=== PATIENT | male | born 1950 | race Caucasian/White ===

== ENCOUNTER 2022-12-14 10:25 | Outpatient (OUT) | payer MEDICARE, SELFPAY ==
[2022-12-14 11:39] LABS: Basophils Percent Auto 0.3 % (0.2-2.0); Eosinophils Absolute Auto 0.2 10^3/uL (0.0-0.7); Hematocrit 41.9 % (42.0-54.0); Hemoglobin 14.5 g/dL (14.0-18.0); Immature Granulocytes Abs Auto 0.02 10^3/uL (0.00-0.03); Immature Granulocytes Pct Auto 0.2 % (0.0-0.5); Lymphocytes Absolute Auto 1.5 10^3/uL (1.2-3.8); Lymphocytes Percent Auto 16.3 % (20.5-60.0); Mean Corpuscular HGB Conc 34.6 g/dL (29.9-35.2); Mean Corpuscular Hemoglobin 29.4 pg (25.9-34.0); Mean Platelet Volume 10.9 fL (9.5-13.5); Monocytes Absolute Auto 0.9 10^3/uL (0.3-0.8); Monocytes Percent Auto 9.3 % (1.7-12.0); Neutrophils Absolute Auto 6.7 10^3/uL (1.4-6.5); Neutrophils Percent Auto 71.9 % (43.0-75.0); Platelet Count 389 10^3/uL (150-450); Red Blood Count 4.93 10^6/uL (4.70-6.10); Red Cell Distribution Width 14.6 % (11.0-15.0); White Blood Count 9.4 10^3/uL (4.0-11.0)
[2022-12-14 11:54] LABS: Alanine Aminotransferase 21 U/L (16-63); Albumin Globulin Ratio 0.9; Albumin Level 3.5 g/dL (3.4-5.0); Alkaline Phosphatase 77 U/L (46-116); Anion Gap 11.3; Aspartate Amino Transferase 14 U/L (15-37); Bilirubin Total 0.5 mg/dL (0.2-1.0); Calcium 9.1 mg/dL (8.5-10.1); Carbon Dioxide 26.6 mmol/L (21.0-32.0); Chloride 104 mmol/L (98-107); Chol HDL Ratio 3.1; Cholesterol 175 mg/dL (<=200); Estimated GFR (African America >60 (>=60); Estimated GFR (Non-African Ame >60 (>=60); Globulin 4.1 g/dL; Glucose 146 mg/dL (74-106); HDL Cholesterol 57 mg/dL (40-60); Potassium 3.9 mmol/L (3.5-5.1); Sodium 138 mmol/L (136-145); Total Protein 7.6 g/dL (6.4-8.2); Triglycerides 70 mg/dL (<=150)
[2022-12-14 12:14] LABS: Prostate Specific Antigen Scrn 1.61 ng/mL (<=4.00)
[2022-12-14 12:17] LABS: Estimated Average Glucose 120 mg/dL; Glycohemoglobin A1C 5.8 % (4.5-6.2)
== END 2022-12-14 10:26 | disposition home or self-care (01) ==
PROVIDERS: PCP Family Medicine; Visit Provider Family Medicine
DX: I10 Essential (primary) hypertension (principal); E11.65 Type 2 diabetes mellitus with hyperglycemia; Z12.5 Encounter for screening for malignant neoplasm of prostate
CPT/HCPCS: 36415; 80053; 80061; 83036; 85025; G0103

== ENCOUNTER 2023-10-25 09:53 | Outpatient (OUT) | payer MEDICARE, SELFPAY ==
[2023-10-25 11:15] LABS: Estimated Average Glucose 131 mg/dL; Glycohemoglobin A1C 6.2 % (4.5-6.2)
[2023-10-25 11:21] LABS: Alanine Aminotransferase 31 U/L (16-63); Albumin Globulin Ratio 0.9; Albumin Level 3.4 g/dL (3.4-5.0); Alkaline Phosphatase 90 U/L (46-116); Anion Gap 12.3; Aspartate Amino Transferase 15 U/L (15-37); BUN Creatinine Ratio 15.6; Bilirubin Total 0.5 mg/dL (0.2-1.0); Calcium 8.7 mg/dL (8.5-10.1); Carbon Dioxide 27.5 mmol/L (21.0-32.0); Chloride 99 mmol/L (98-107); Estimated GFR (African America >60 (>=60); Estimated GFR (Non-African Ame >60 (>=60); Globulin 3.9 g/dL; Glucose 174 mg/dL (74-106); Potassium 3.8 mmol/L (3.5-5.1); Sodium 135 mmol/L (136-145); Total Protein 7.3 g/dL (6.4-8.2)
== END 2023-10-25 09:54 | disposition home or self-care (01) ==
LOC: LAB 09:56
PROVIDERS: PCP Family Medicine; Visit Provider Family Medicine
DX: E11.65 Type 2 diabetes mellitus with hyperglycemia (principal); I10 Essential (primary) hypertension
CPT/HCPCS: 36415; 80053; 83036

== ENCOUNTER 2024-05-16 10:39 | Outpatient (OUT) | payer MEDICARE, SELFPAY ==
--- OUTSIDE RECORDS SUMMARY | 2024-05-16 10:52 | XMS_ITS | CCD ---
Author Organization [facility] Care Team Providers Care Sap Director Name Role Phone DR RANDA HYLTON Attending Unavailable DR RANDA HYLTON Consulting Unavailable DR RANDA HYLTON Primary Care Unavailable DR RANDA HYLTON Admitting Unavailable Randa Hylton Allergies Allergy Classification Reported Allergen(s) Allergy Type Date of Onset Reaction(s) Facility (2 sources) Aspirin / Caffeine / Orphenadrine Drug Allergy 04-17-20 13 Comment:Freete xt Needs Updated. [facility] Other (2 sources) patient allergy list reviewed by nurse or physicia Propensity to adverse reactions 04-17-20 13 Comment:Done [facility] Other (2 sources) Allergies Reconciled Propensity to adverse reactions Unknown [facility] Other Medications Current Medications Medication Drug Class(es) Dates Sig (Normalized) Sig (Original) atorvastatin 20 mg oral tablet (10 sources) HMG-CoA Reductase Inhibitor Start: 09-30-2023 take 1 tablet by mouth once daily Atorvastatin Active 0 .ROUTE .COMPLEX September 30, 2023 4:37pm Take 1 tablet by mouth once daily Start: 08-31-2023 End: 09-30-2023 take 1 tablet by mouth once daily Atorvastatin Discontinued 0 .ROUTE .COMPLEX August 31, 2023 12:16pm September 30, 2023 4:37pm Take 1 tablet by mouth once daily Start: 08-04-2023 End: 08-31-2023 take 1 tablet by mouth once daily Atorvastatin Discontinued 0 .ROUTE .COMPLEX August 04, 2023 9:28am August 31, 2023 12:16pm Take 1 tablet by mouth once daily for 30 days Start: 07-27-2023 End: 08-04-2023 take 1 tablet by mouth once daily Atorvastatin Discontinued 1 TAB PO Daily July 27, 2023 12:00am August 04, 2023 9:28am [employer] tablet Orally Once a day; Note: Source Status: Start; Refills: 2; Provider: Warner Moser take 1 tablet by dandre th every twenty-four hours Atorvastatin Calcium 20 MG 1 tablet Orally Once a day for 30 days Active hydroCHLOROthiazide 25 mg / lisinopril 20 mg oral tablet (5 sources) Thiazide Diuretic, Angiotensin Converting Enzyme Inhibitor Start: 07-26-2023 take 1 tablet by mouth once daily Lisinopril-Hydrochlorothiazide Active 1 TAB PO Daily July 26, 2023 12:00am take 1 tablet by dandre th once daily Lisinopril-hydroCHLOROthiazide 20-25 MG Take 1 tablet by mouth once daily Active metFORMIN (7 sources) Biguanide Start: 11-25-2023 take 1 tablet by mouth twice daily Metformin Active 0 .ROUTE .COMPLEX 60 November 25, 2023 11:33am Take 1 tablet by mouth twice daily Start: 10-27-2023 End: 11-25-2023 take 1 tablet by mouth twice daily Metformin Discontinued 0 .ROUTE .COMPLEX 60 October 27, 2023 10:42am November 25, 2023 11:33am Take 1 tablet by mouth twice daily Start: 06-23-2023 End: 10-27-2023 take 500 mg by mouth twice daily Metformin Discontinued 500 MG PO Twice daily 60 June 23, 2023 1:00am October 27, 2023 10:42am take 1 tablet by dandre th twice daily metFORMIN HCl 500 MG Take 1 tablet by mouth twice daily for 30 Active 24 hr metoprolol succinate 100 mg extended release oral tablet (18 sources) beta-Adrenergic Sundeep Start: 01-17-2024 take 1 tablet by mouth once daily Metoprolol Succinate Active 0 .ROUTE .COMPLEX January 17, 2024 1:15pm Take 1 tablet by mouth once daily Start: 08-03-2023 End: 01-17-2024 take 100 mg by mouth once daily Metoprolol Succinate Discontinued 100 MG PO Daily October 19, 2023 8:34am January 17, 2024 1:15pm Start: 07-27-2023 End: 08-03-2023 take 100 mg by mouth twice daily Metoprolol Succinate Discontinued 100 MG PO Twice daily July 27, 2023 9:38am August 03, 2023 8:47pm Start: 07-22-2023 End: 07-27-2023 take 1 tablet by mouth once daily Metoprolol Succinate Discontinued 0 .ROUTE .COMPLEX 90 July 22, 2023 2:34pm July 27, 2023 9:38am Take 1 tablet by mouth once daily Start: 07-22-2023 End: 07-22-2023 take 100 mg by mouth once daily Metoprolol Succinate Discontinued 100 MG PO Daily July 22, 2023 12:00am July 22, 2023 2:34pm Start: 11-18-2021 take 1 tablet by dandre th once daily Toprol XL 50MG Toprol XL 50MG, 1 (one) Tablet daily # 90, 11/18/2021, Ref. x3. Active Oral daily for 90 *Pick strength-form from [employer] for eRX* Oct, Active take 1 tablet by dandre th once daily Metoprolol Succinate ER 100 MG Take 1 tablet by mouth once daily Active sildenafil 25 mg oral tablet (10 sources) Phosphodiesterase 5 Inhibitor Start: 11-11-2023 End: 12-30-2023 Sildenafil Active 0 .ROUTE .COMPLEX December 30, 2023 8:14am TAKE 1 TABLET BY MOUTH NEEDED FOR SEXUAL ACTIVITY. ADMINISTER 30 MINUTES TO 4 HOURS BEFORE ACTIVITY. Start: 07-27-2023 End: 11-11-2023 Sildenafil Discontinued 25 M G PO Daily July 27, 2023 12:00am November 11, 2023 9:37am administer 30 minutes to 4 hours before activity Start: 07-26-2023 End: 07-27-2023 Sildenafil Discontinued 100 MG PO July 26, 2023 12:00am July 27, 2023 9:53am Sildenafil Citra te 100 MG TAKE 1 TABLET BY MOUTH NEEDED FOR 10 DAYS for 10 Active Timolol (5 sources) beta-Adrenergic Sundeep Start: 07-27-2023 take 1 drop(s) into the eye(s) once daily Timolol Active 1 DROPS EYE-BOTH Daily July 27, 2023 12:00am Start: 11-13-2021 Timolol Maleat e 0.5% Timolol Maleate( 0.5% Ophthalmic ) Active -Hx Entry Ophthalmic for 0 *Pick strength-form from [employer] for eRX* Oct, Active Completed/Discontinued Medications Medication Drug Class(es) Dates Sig (Normalized) Sig (Original) amLODIPine 5 mg oral tablet (10 sources) Dihydropyridine Calcium Channel Sundeep Start: 08-04-2023 End: 09-30-2023 take 1 tablet by mouth once daily Amlodipine Discontinued 0 .ROUTE .COMPLEX August 31, 2023 12:16pm September 30, 2023 4:37pm Take 1 tablet by mouth once daily Start: 07-27-2023 End: 08-04-2023 take 1 tablet by mouth once daily Amlodipine Discontinued 1 TAB PO Daily July 27, 2023 12:00am August 04, 2023 9:28am [employer] tablet Orally Once a day; Note: Source Status: Start; Refills: 2; Provider: Warner Moser take 1 tablet by dandre th every twenty-four hours amLODIPine Besylate 5 MG 1 tablet Orally Once a day for 30 days Active Problems Active Problems Problem Classification Problem Date Documented Da te Episodic/Chronic Diabetes mellitus with complications (8 sources) Type 2 diabetes mellitus; Translations: [Type 2 diabetes mellitus with hyperglycemia] Chronic Diabetes mellitus without complication (6 sources) Impaired fasting glucose; Translations: [Impaired fasting glycemia] Onset: 11-14-2021 07-26-2023 Episodic Essential hypertension (12 sources) Essential (primary) hypertension; Translations: [Essential hypertension] Onset: 11-13-2021 Chronic Miscellaneous mental health disorders (2 sources) Psychosexual dysfunction associated with inhibited sexual excitement; Translations: [Psychosexual dysfunction with inhibited sexual excitement] Onset: 04-06-2016 Chronic Other and ill-defined heart disease (5 sources) Cardiomegaly; Translations: [Cardiomegaly] 07-26-2023 Chronic Other circulatory disease (5 sources) Elevated blood-pressure reading without diagnosis of hypertension; Translations: [Elevated blood-pressure reading, without diagnosis of hypertension] 07-26-2023 Episodic Other connective tissue disease (2 sources) Other specified disorders of synovium and tendon, unspecified site; Translations: [Other specified disorders of synovium and tendon, unspecified site] Episodic Other male genital disorders (7 sources) Male erectile dysfunction, unspecified; Translations: [Erectile dysfunction (disorder)] 07-27-2023 Chronic Other nervous system disorders (2 sources) Carpal tunnel syndrome; Translations: [Carpal tunnel syndrome, right upper limb] Chronic Other nervous system disorders (1 source) Lesion of ulnar nerve; Translations: [Lesion of ulnar nerve, right upper limb] Chronic Other nervous system disorders (1 source) Lesion of ulnar nerve, right upper limb Chronic Other nervous system disorders (3 sources) Carpal tunnel syndrome of right wrist; Translations: [Carpal tunnel syndrome, right upper limb] 07-26-2023 Chronic Other nervous system disorders (3 sources) Ulnar neuropathy; Translations: [Lesion of ulnar nerve, right upper limb] 07-26-2023 Chronic Other nutritional; endocrine; and metabolic disorders (6 sources) Obese class II; Translations: [Body mass index (BMI) 37.0-37.9, adult] Onset: 07-20-2017 Chronic Other nutritional; endocrine; and metabolic disorders (4 sources) Body mass index 30+ - obesity; Translations: [Body mass index 36.0-36.9, adult] Onset: 04-12-2017 07-27-2023 Chronic Other nutritional; endocrine; and metabolic disorders (5 sources) Obesity; Translations: [Other obesity] 07-26-2023 Chronic Other nutritional; endocrine; and metabolic disorders (2 sources) Obesity, unspecified; Translations: [Obesity, unspecified] 07-27-2023 Chronic Other screening for suspected conditions (not mental disorders or infectious disease) (1 source) Encounter for screening for malignant neoplasm of prostate; Translations: [ENC SCREEN MALIG NEOPLASM PROSTATE] Onset: 11-14-2021 Episodic Other skin disorders (2 sources) Other seborrheic keratosis; Translations: [Seborrheic keratosis] Episodic Other skin disorders (3 sources) Seborrheic keratosis; Translations: [Other seborrheic keratosis] 07-26-2023 Episodic Residual codes; unclassified (2 sources) Family history of diabetes mellitus; Translations: [Family history of diabetes mellitus] Episodic Past or Other Problems Problem Classification Problem Date Documented Da te Episodic/Chronic Diseases of mouth; excluding dental (2 sources) Mucocele of salivary gland; Translations: [Mucocele of salivary gland] Onset: 04-15-2017 Episodic Immunizations and screening for infectious disease (2 sources) Vaccination given; Translations: [Encounter for immunization] Onset: 07-20-2017 Episodic Malaise and fatigue (2 sources) Malaise and fatigue; Translations: [Other malaise and fatigue] Onset: 05-01-2014 Episodic Other ear and sense organ disorders (2 sources) Impacted cerumen; Translations: [Impacted cerumen] Onset: 01-15-2014 Episodic Results Test Name Value Interpretation Reference Range Facil ity CBC AUTO DIFFon 11-13-2021 BASO # 0.1 103/ul Normal 0.0-0.1 [facility] Comment on above: Performed By: #### C BC #### [facility] [address] [address] [address] Tyra Murray Basophils/100 WBC (Bld) 0.5 % Normal 0.2-2.0 [facility] Comment on above: Performed By: #### C BC #### [facility] [address] [place] [address] Dr. Tyra Murray EO # 0.2 103/ul Normal 0.0-0.7 [facility] Comment on above: Performed By: #### C BC #### [facility] [address] [address] [address] Tyra Murray Eosinophils/100 WBC (Bld) 1.9 % Normal 0.9-7.0 [facility] Comment on above: Performed By: #### C BC #### [facility] [address] [place] [address] Dr. Tyra Murray Erythrocyte distribution width (RBC) [Ratio] 15.6 % Critically high 11.0-15.0 [facility] Comment on above: Performed By: #### C BC #### [facility] [address] [place] [address] Dr. Tyra Murray Hematocrit (Bld) [Volume fraction] 43.2 % Normal 42.0-54.0 [facility] Comment on above: Performed By: #### C BC #### [facility] [address] [place] [address] Dr. Tyra Murray Hemoglobin (Bld) [Mass/Vol] 14.6 g/dL Normal 14.0-18.0 [facility] Comment on above: Performed By: #### C BC #### [facility] [address] [place] [address] Dr. Tyra Murray IG # 0.02 10e3/ul Normal 0.00-0.03 [facility] Comment on above: Performed By: #### C BC #### [facility] [address] [place] [address] Dr. Tyra Murray IG % 0.2 % Normal 0.0-0.5 [facility] Comment on above: Performed By: #### C BC #### [facility] [address] [place] [address] Dr. Tyra Murray LYMPH # 1.9 103/ul Normal 1.2-3.8 [facility] Comment on above: Performed By: #### C BC #### [facility] [address] [place] [address] Dr. Tyra Murray Lymphocytes/100 WBC (Bld) 18.0 % Critically low 20.5-60.0 [facility] Comment on above: Performed By: #### C BC #### [facility] [address] [place] [address] Dr. Tyra Murray MANUAL DIFF REQ NO Normal [facility] Comment on above: Performed By: #### C BC #### [facility] [address] [place] [address] Dr. Tyra Murray MCH (RBC) [Entitic mass] 29.2 pg Normal 25.9-34.0 [facility] Comment on above: Performed By: #### C BC #### [facility] [address] [place] [address] Dr. Tyra Murray MCHC (RBC) [Mass/Vol] 33.8 g/dL Normal 29.9-35.2 [facility] Comment on above: Performed By: #### C BC #### [facility] [address] [place] [address] Dr. Tyra Murray MCV (RBC) [Entitic vol] 86.4 fL Normal 80.0-94.0 [facility] Comment on above: Performed By: #### C BC #### [facility] [address] [place] [address] Dr. Tyra Murray MONO # 1.0 103/ul Critically high 0.3-0.8 [facility] Comment on above: Performed By: #### C BC #### [facility] [address] [address] [address] Tyra Murray Monocytes/100 WBC (Bld) 9.0 % Normal 1.7-12.0 [facility] Comment on above: Performed By: #### C BC #### [facility] [address] [address] [address] Tyra Murray NEUT # 7.6 103/ul Critically high 1.4-6.5 [facility] Comment on above: Performed By: #### C BC #### [facility] [address] [place] [address] Dr. Tyra Murray Neutrophils/100 WBC (Bld) 70.4 % Normal 43.0-75.0 [facility] Comment on above: Performed By: #### C BC #### [facility] [address] [place] [address] Dr. Tyra Murray Platelet mean volume (Bld) [Entitic vol] 11.1 fL Normal 9.5-13.5 [facility] Comment on above: Performed By: #### C BC #### [facility] [address] [place] [address] Dr. Tyra Murray PLT 347 103/ul Normal 150-450 [facility] Comment on above: Performed By: #### C BC #### [facility] [address] [place] [address] Dr. Tyra Murray RBC 5.00 106/ul Normal 4.70-6.10 [facility] Comment on above: Performed By: #### C BC #### [facility] [address] [place] [address] Dr. Tyra Murray WBC 10.8 103/ul Normal 4.0-11.0 [facility] Comment on above: Performed By: #### C BC #### [facility] [address] [place] [address] Dr. Tyra Murray GLYCOHEMOGLOBIN A1Con 2021 ADA RECOMMENDATION SEE BELOW Normal [facility] Comment on above: Result Comment: ADA RECOMMENDED LIMIT 4.0 - 6.0 ADA THERAPEUTIC TARGET < 7.0 ACTION SUGGESTED > 7.0 Performed By: #### A 1C #### [facility] [address] [place] [address] Dr. Tyra Murray Glucose [Mass/Vol] 123 mg/dL Normal [facility] Comment on above: Performed By: #### A 1C #### [facility] [address] [address] [address] Tyra Murray HbA1c (Bld) [Mass fraction] 5.9 % Normal 4.5-6.2 [facility] Comment on above: Performed By: #### A 1C #### [facility] [address] [place] [address] Dr. Tyra Murray LIPID PROFILEon 11-13-2021 CHOL-HDL RATIO NORM SEE BELOW Normal [facility] Comment on above: Result Comment: 3.3 - 4.4 LOW RISK 4.4 - 7.1 AVERAGE RISK 7.1 - 11.0 MODERATE RISK >11.0 HIGH RISK Performed By: #### L IPID, CMP #### [facility] [address] [place] [address] Dr. Tyra Murray Cholesterol [Mass/Vol] 206 mg/dL Critically high <=200 [facility] Comment on above: Performed By: #### L IPID, CMP #### [facility] [address] [address] [address] Tyra Murray Cholesterol in HDL [Mass/Vol] 55 mg/dL Normal 40-60 [facility] Comment on above: Performed By: #### L IPID, CMP #### [facility] [address] [address] [address] Tyra Murray Cholesterol in LDL [Mass/Vol] 137.6 mg/dL Normal [facility] Comment on above: Performed By: #### L IPID, CMP #### [facility] [address] [place] [address] Dr. Tyra Murray Cholesterol.total/Cho lesterol in HDL [Mass ratio] 3.7 {ratio} Normal [facility] Comment on above: Performed By: #### L IPID, CMP #### [facility] [address] [address] [address] Tyra Murray HDL NORMAL > or = 60 mg/dl - LOW CARDIOVASCULAR RISK <40 mg/dl - HIGH CARDIOVASCULAR RISK Normal [facility] Comment on above: Performed By: #### L IPID, CMP #### [facility] [address] [address] [address] Tyra Murray LDL CALC NORMAL SEE BELOW Normal [facility] Comment on above: Result Comment: <100 mg/dl OPTIMAL 100 - 129 mg/dl NEAR OR ABOVE OPTIMAL 130 - 159 mg/dl BORDERLINE HIGH 160 - 189 mg/dl HIGH >190 mg/dl VERY HIGH Performed By: #### L IPID, CMP #### [facility] [address] [address] [address] Tyra Murray Triglyceride [Mass/Vol] 67 mg/dL Normal <=150 [facility] Comment on above: Performed By: #### L IPID, CMP #### [facility] [address] [address] [address] Tyra Murray VLDL CALC 13.4 mg/dL Normal [facility] Comment on above: Performed By: #### L IPID, CMP #### [facility] [address] [address] [address] Tyra Murray PROF 14(COMP METB)on 022 Albumin [Mass/Vol] 3.4 g/dL Normal 3.4-5.0 [facility] Comment on above: Performed By: #### L IPID, CMP #### [facility] [address] [address] [address] Tyra Murray Albumin/Globulin [Mass ratio] 0.8 {ratio} Normal [facility] Comment on above: Performed By: #### L IPID, CMP #### [facility] [address] [address] [address] Tyra Murray ALP [Catalytic activity/Vol] 73 U/L Normal 46-116 [facility] Comment on above: Performed By: #### L IPID, CMP #### [facility] [address] [address] [address] Tyra Murray ALT [Catalytic activity/Vol] 22 U/L Normal 16-63 [facility] Comment on above: Performed By: #### L IPID, CMP #### [facility] [address] [address] [address] Tyra Murray Anion gap [Moles/Vol] 11.8 mmol/L Normal [facility] Comment on above: Performed By: #### L IPID, CMP #### [facility] [address] [address] [address] Tyra Murray AST [Catalytic activity/Vol] 10 U/L Critically low 15-37 [facility] Comment on above: Performed By: #### L IPID, CMP #### [facility] [address] [place] [address] Dr. Tyra Murray Bilirubin [Mass/Vol] 0.5 mg/dL Normal 0.2-1.0 [facility] Comment on above: Performed By: #### L IPID, CMP #### [facility] [address] [address] [address] Tyra Murray Calcium [Mass/Vol] 9.0 mg/dL Normal 8.5-10.1 [facility] Comment on above: Performed By: #### L IPID, CMP #### [facility] [address] [place] [address] Dr. Tyra Murray Chloride [Moles/Vol] 104 mmol/L Normal 98-107 [facility] Comment on above: Performed By: #### L IPID, CMP #### [facility] [address] [address] [address] Tyra Murray CO2 [Moles/Vol] 27.3 mmol/L Normal 21.0-32.0 [facility] Comment on above: Performed By: #### L IPID, CMP #### [facility] [address] [address] [address] Tyra Murray Creatinine [Mass/Vol] 1.02 mg/dL Normal 0.70-1.30 [facility] Comment on above: Performed By: #### L IPID, CMP #### [facility] [address] [address] [address] Tyra Murray EGFR-AF ALBANIAN >60 Normal >=60 [facility] Comment on above: Performed By: #### L IPID, CMP #### [facility] [address] [address] [address] Tyra Murray EGFR-NON AF ALBANIAN >60 Normal >=60 [facility] Comment on above: Performed By: #### L IPID, CMP #### [facility] [address] [address] [address] Tyra Murray Globulin (S) [Mass/Vol] 4.1 g/dL Normal [facility] Comment on above: Performed By: #### L IPID, CMP #### [facility] [address] [address] [address] Tyra Murray Glucose [Mass/Vol] 160 mg/dL Critically high 74-106 [facility] Comment on above: Performed By: #### L IPID, CMP #### [facility] [address] [address] [address] Tyra Murray Potassium [Moles/Vol] 4.1 mmol/L Normal 3.5-5.1 [facility] Comment on above: Performed By: #### L IPID, CMP #### [facility] [address] [address] [address] Tyra Murray Protein [Mass/Vol] 7.5 g/dL Normal 6.4-8.[address] [facility] Comment on above: Performed By: #### L IPID, CMP #### [facility] [address] [address] [address] Tyra Murray Sodium [Moles/Vol] 139 mmol/L Normal 136-145 [facility] Comment on above: Performed By: #### L IPID, CMP #### [facility] [address] [address] [address] Tyra Murray Urea nitrogen [Mass/Vol] 20.0 mg/dL Critically high 7.0-18.0 [facility] Comment on above: Performed By: #### L IPID, CMP #### [facility] [address], [place] [address] Dr[address] Tyra Murray Urea nitrogen/Creatinine [Mass ratio] 19.6 mg/mg Normal [facility] Comment on above: Performed By: #### L IPID, CMP #### [facility] [address] [address] [address] Tyra Murray Vital Signs Date Time Vital Sign Value Performing Clinician Facility 02-14-2024 [id number] Body height 177.8 cm [facility] 02-14-2024 08:11-0400 Body mass index (BMI) [Ratio] 34.7 kg/m2 [facility] 02-14-2024 08:11-0400 Body weight 109.82 kg [facility] 02-14-2024 08:11-0400 Diastolic blood pressure 80 mm[Hg] [facility] 02-14-2024 08:11-0400 Heart rate 81 /min [facility] 02-14-2024 08:11-0400 Respiratory rate 16 /min [facility] 02-14-2024 08:11-0400 SaO2% (BldA) [Mass fraction] 98 % [facility] 02-14-2024 08:11-0400 Systolic blood pressure 132 mm[Hg] [facility] 10-25-2023 09:22-0400 Body height 177.8 cm [facility] 10-25-2023 09:22-0400 Body mass index (BMI) [Ratio] 34.9 kg/m2 [facility] 10-25-2023 09:22-0400 Body weight 110.67 kg [facility] 10-25-2023 09:22-0400 Diastolic blood pressure 80 mm[Hg] [facility] 10-25-2023 09:22-0400 Heart rate 74 /min [facility] [facility] 10-25-2023 09:22-0400 Systolic blood pressure 137 mm[Hg] [facility] 07-27-2023 09:27-0400 Body height 177.8 cm [facility] 07-27-2023 09:27-0400 Body mass index (BMI) [Ratio] 35.7 kg/m2 [facility] 07-27-2023 09:27-0400 Body weight 113.11 kg [facility] 07-27-2023 09:27-0400 Diastolic blood pressure 87 mm[Hg] [facility] 07-27-2023 09:27-0400 Heart rate 79 /min [facility] 07-27-2023 09:27-0400 Systolic blood pressure 144 mm[Hg] [facility] 05-07-2023 09:30-0500 Body height 177.8 cm Randa Hylton Other [facility] 05-07-2023 09:30-0500 Body mass index (BMI) [Ratio] 35.58 kg/m2 Randa Hylton Other [facility] Other 05-07-2023 09:30-0500 Body weight 112.49 kg Randa Hylton Other [facility] 05-07-2023 09:30-0500 Diastolic blood pressure 90 mm[Hg] Randa Hylton Other [facility] 05-07-2023 09:30-0500 Systolic blood pressure 142 mm[Hg] Randa Hylton Other [facility] Encounters Encounter Date Encounter Type Care Provider Facility Start: 02-14-2024 End: 02-14-2024 ambulatory [facility] Work Phone: Start: 02-14-2024 End: 02-14-2024 Patient encounter procedure [facility] Work Phone: Start: 02-11-2024 Non-patient / Non-visit [facility] Work Phone: Start: 10-25-2023 End: 10-25-2023 ambulatory [facility] Work Phone: Start: 10-25-2023 End: 10-25-2023 Patient encounter procedure [facility] Work Phone: Start: 07-27-2023 End: 07-27-2023 ambulatory [facility] Work Phone: Start: 07-27-2023 End: 07-27-2023 Patient encounter procedure [facility] Work Phone: Start: 07-22-2023 Non-patient / Non-visit [facility] Work Phone: Start: 05-07-2023 End: 05-07-2023 ambulatory Randa Hylton Other [facility] Other Start: 05-07-2023 Office outpatient vi sit 25 minutes Randa Hylton [facility] Start: 05-07-2023 End: 05-07-2023 Patient encounter procedure [facility] Work Phone: Start: 03-08-2023 End: 03-08-2023 ambulatory Randa Hylton Other [facility] Other Start: 03-08-2023 Telephone encounter Randa Hylton [facility] Start: 11-13-2021 Adult health examination Randa Hylton Other [facility] Other Start: 11-13-2021 End: 11-14-[address] RANDA HYLTON Facility: Procedures Date Procedure Procedure Detail Performing Clinician Start: 11-13-[address] RANDA HYLTON Comment on above: Performed By: #### P [facility] #### [facility] [address] [place] [address] Dr. Tyra Murray Start: 05-01-2014 Screening for malign ant neoplasm of prostate Randa Hylton Other Start: 04-17-2013 General examination of patient Randa Hylton Other Screening for malign ant neoplasm of prostate Randa Hylton Other Plan of Treatment Date Care Activity Detail Author Comprehensive metabo lic 2000 panel - Serum or Plasma [facility] Immunizations Immunization Date Immunization Notes Care Provider Fa cility 02-14-2024 influenza, high dose seasonal, preservative-free [facility] 09-03-2023 zoster vaccine, live [facility] 03-13-2022 COVID-19 Pfizer (Pediatric) Randa Hylton Other [facility] 08-19-2021 COVID-19 Vaccine Pfi zer - Documentation Purposes Only Randa Hylton Other [facility] 03-18-2021 COVID-19 Vaccine Pfi zer - Documentation Purposes Only Randa Hylton Other [facility] 03-18-2021 influenza virus vaccine, split virus (incl. purified surface antigen) Randa Hylton Other [facility] [id number] Other 03-18-2021 influenza virus vaccine, unspecified formulation [facility] 02-13-2020 influenza virus vaccine, split virus (incl. purified surface antigen) Randa Hylton Other [facility] [id number] Other 02-13-2020 influenza virus vaccine, unspecified formulation [facility] 04-21-2018 pneumococcal Conjuga te, unspecified formulation; Translations: [Need for prophylactic vaccination against Streptococcus pneumoniae (pneumococcus)] Randa Hylton Other [facility] [id number] Other 04-21-2018 pneumococcal polysaccharide vaccine, 23 valent Randa Hylton Other [facility] 07-20-2017 pneumococcal conjuga te vaccine, 13 valent Randa Hylton Other [facility] 07-06-2017 diphtheria, tetanus toxoids and acellular pertussis vaccine, unspecified formulation Randa Hylton Other [facility] 04-24-2016 zoster vaccine, live Randa Hylton Other [facility] 01-30-2016 influenza virus vaccine, split virus (incl. purified surface antigen) Randa Hylton Other [facility] Other 01-30-2016 influenza virus vaccine, unspecified formulation [facility] 02-08-2013 tetanus and diphther ia toxoids, adsorbed, preservative free, for adult use (5 Lf of tetanus toxoid and 2 Lf of diphtheria toxoid) Randa Hylton Other [facility] Payers Date Payer Category Payer Unknown [id number] 1950 Unknown [id number] Social History Date Type Detail Facility Unknown if ever smoked [facility] Other Sex Assigned At Sex Assigned At Bir th [facility] Other Start: 1950 Sex Assigned At Male F [facility] Evaluation note 05-07-2023 Note Date & Type Note Facility 05-07-2023 Evaluation note Encounter Date Diagnosis Assessment Notes May, Essential (primary) hypertension (ICD-10 - I10) Blood pressure remains well controlled at this time. Denies cardiac symptoms. Shows no signs or symptoms or poor control. Patient to continue with above medication and we will continue to monitor. Advised to pay attention to body and symptoms. Any developing patterns. Stay well hydrated. 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 Work Phone: Evaluation note Note Date & Type Note Facility Evaluation note Diagnosis Onset Date Class 2 obesity with body ma ss index (BMI) of 35 to 39.9 without comorbidity acute Essential (primary) hypertension acute Male erectile dysfunction, unspecified acute [id number] acute Class 2 obesity with body ma ss index (BMI) of 35 to 39.9 without comorbidity acute Essential (primary) hypertension acute Male erectile dysfunction, unspecified acute [id number] acute [facility] Work Phone: History general Narrative - Reported Note Date & Type Note Facility History general Narrative - Reported Type Medical History Problem Title : ADL Summary, Problem Description : ADL Summary, Problem Comment : Bathing~independent^Dressing~independent^Eatin g~independent^Toileting~independent^Transferri ng~independent^Continence~independent, Problem Status : Active,, Medical History Problem Title : comp liance with medical treatment, Problem Description : compliance with medical treatment, Problem Comment : Done, Problem Status : Active,, Medical History Problem Title : Depr ession: Baseline PHQ-9 total score?, Problem Description : Depression: Baseline PHQ-9 total score?, Problem Comment : 0, Problem Status : Active,, Medical History Problem Title : Fall assessment-Total score, Problem Description : Fall assessment-Total score, Problem Comment : Complete Low Risk, Problem Status : Active,, Medical History Problem Title : Fall Risk Assessment: I am worried about falling, Problem Description : Fall Risk Assessment: I am worried about falling, Problem Comment : No, Problem Status : Active,, Medical History Problem Title : Fall Risk Assessment: Sometimes I feel unsteady when I am walking, Problem Description : Fall Risk Assessment: Sometimes I feel unsteady when I am walking, Problem Comment : No, Problem Status : Active,, Medical History Problem Title : fall s in the last twelve months, Problem Description : falls in the last twelve months, Problem Comment : No, Problem Status : Active,, Medical History Problem Title : Fall s: Risk Assessment - Patient screened for falls, fall risk, Problem Description : Falls: Risk Assessment - Patient screened for falls, fall risk, Problem Comment : Done, Problem Status : Active,, Medical History Problem Title : IADL Summary, Problem Description : IADL Summary, Problem Comment : Transportation~independent^Meal/Food Preparation~independent^Shopping Errands~independent^Housekeeping/Chores~indepe ndent^Money Management/Finances~independent^Medication Management~independent^Ability to Use Telephone~independent^Laundry~independent, Problem Status : Active,, Medical History Problem Title : Inju ry sustained from fall(s)?, Problem Description : Injury sustained from fall(s)?, Problem Comment : No, Problem Status : Active,, Medical History Problem Title : Is P atient on Medicare. Used for Residency Programs to evaluate precepting guidelines from Medicare, Problem Description : Is Patient on Medicare. Used for Residency Programs to evaluate precepting guidelines from Medicare, Problem Comment : Yes, Problem Status : Active,, Medical History Problem Title : [facility] Annual Wellness Exam, Problem Description : Medicare Annual Wellness Exam, Problem Comment : [id number], Problem Status : Active,, Medical History Problem Title : [facility] Part B,CMOD Checklist #1, Problem Description : Medicare Part B,CMOD Checklist #1, Problem Comment : Yes, Problem Status : Active,, Medical History Problem Title : no k nown problems, Problem Description : no known problems, Problem Comment : F, Problem Status : Active,, Medical History Problem Title : Numb er of previous fall in past year, Problem Description : Number of previous fall in past year, Problem Comment : 0, Problem Status : Active,, Medical History Problem Title : past medical history E&M, Problem Description : past medical history E&M, Problem Comment : HTN Obesity Elevated glucose, Problem Status : Active,, Medical History Problem Title : past medical history reviewed, Problem Description : past medical history reviewed, Problem Comment : reviewed - no changes required, Problem Status : Active,, Medical History Problem Title : Jonna ent Health Questionaire 9 item inventory, Problem Description : Patient Health Questionaire 9 item inventory, Problem Comment : None, Problem Status : Active,, Medical History Problem Title : PHQ- 9 (patient questionnaire) score, Problem Description : PHQ-9 (patient questionnaire) score, Problem Comment : 0, Problem Status : Active,, Medical History Problem Title : PHQ- 9 Diagnosis, Problem Description : PHQ-9 Diagnosis, Problem Comment : No indication of depression, Problem Status : Active,, Medical History Problem Title : Prob lems Reconciled, Problem Status : Active,, Medical History Problem Title : smok ing/tobacco cessation, patient education and counseling, Problem Description : smoking/tobacco cessation, patient education and counseling, Problem Comment : no, Problem Status : Active,, Medical History Problem Title : very low density lipoproteins, Problem Description : very low density lipoproteins, Problem Comment : 16.0, Problem Status : Active,, Surgical History Problem Title : past surgical history reviewed, Problem Description : past surgical history reviewed, Problem Comment : reviewed - no changes required, Problem Status : Active, Surgical History Problem Title : surg ical procedures, hx of, Problem Description : surgical procedures, hx of, Problem Comment : Umbilical hernia repair and colonoscopy 2009 Sukh L parotidectomy 08/2017 - Dr. Reyna, Problem Status : Active, Surgical History Problem Title : surg ical procedures, hx of, Problem Description : surgical procedures, hx of, Problem Comment : Umbilical hernia repair and colonoscopy 2009 [facility], Problem Status : Active, [facility] Other Summary Purpose Family History Relationship Condition Age at Onset Recorded Date/T mike father Diabetes mellitus Unknown Unknown Malignant neoplasm Unknown Not Specified Unknown Diabetes mellitus Unknown Relationship Condition Age at Onset Recorded Date/T mike father Diabetes mellitus Unknown Unknown Malignant neoplasm Unknown mother Unknown Diabetes mellitus Unknown Advance Directives Advance Directive Response Recorded Date/ Time Advance Directives No May 25, 2023 11:31am Chief Complaint and Reason for Visit Chief Complaint Bp Follow Up Amb Documentation medication discussion Chief Complaint medication discussio n 3 month follow up Reason for Visit Class 2 obesity with body mass index (BMI) of 35 to 39.9 without comorbidity Essential (primary) hypertension Male erectile dysfunction, unspecified [id number] Class 2 obesity with body mass index (BMI) of 35 to 39.9 without comorbidity Essential (primary) hypertension Male erectile dysfunction, unspecified [id number] Chief Complaint CC Adult Risk Strati fication wellness Additional Source Comments (unrecognized sect ion and content) No Status Records Found INFORMATION SOURCE (unrecogn ized section and content) DATE CREATED AUTHOR 11/19/2021 [facility] REASON FOR VISIT (unrecogniz ed section and content) messageBP Follow up Care Teams (unrecognized sec tion and content) Team Status: Active Member Role Status Dates Randa Hylton MD Primary Care Provider Active Team Status: Active Member Role Status Dates Randa Hylton MD Primary Care Provide r, Attending Provider Active Start: February 11, 2024 Team Status: Inactive Member Role Status Dates Randa Hylton MD Primary Care Provide r, Attending Provider Active Start: February 14, 2024 End: February 14, 2024 Team Status: Active Member Role Status Dates Randa Hylton MD Primary Care Provider Active Team Status: Inactive Member Role Status Dates Randa Hylton MD Attending Provider Active St art: May 07, 2023 End: May 07, 2023 Team Status: Active Member Role Status Dates Randa Hylton MD Primary Care Provider Active Start: July 22, 2023 PATIENCE Ann Attending Provider Active Start : July 22, 2023 Team Status: Inactive Member Role Status Julio Hylton MD Primary Care Provide r, Attending Provider Active Start: July 27, 2023 End: July 27, 2023 Team Status: Inactive Member Role Status Julio Hylton MD Primary Care Provide r, Attending Provider Active Start: October 25, 2023 End: October 25, 2023 Team Status: Active Member Role Status Julio Hylton MD Primary Care Provide r, Attending Provider Active Start: February 11, 2024 Team Status: Inactive Member Role Status Julio Hylton MD Primary Care Provide r, Attending Provider Active Start: February 14, 2024 End: February 14, 2024 Goals (unrecognized section and content) Goals may be documented in a n alternate section FOR RECORDS PERTAINING TO PATIENTS WHO ARE OR HAVE BEEN ENROLLED IN A CHEMICAL DEPENDENCY/SUBSTANCEABUSE PROGRAM, SOME INFORMATION MAY BE OMITTED. This clinical summary was aggregated from multiple sources. Caution should be exercised in using it in the provision of clinical care. This summary normalizes information from multiple sources, and as a consequence, information in this document may materially change the coding, format and clinical context of patient data. In addition, data may be omitted in some cases. CLINICAL DECISIONS SHOULD BE BASED ON THE PRIMARY CLINICAL RECORDS. [employer] provides no warranty or guarantee of the accuracy or completeness of information in this document.
--- NOTE | 2024-05-16 11:00 | XR_ITS ---
The [address] [address] Patient Name: SHAHRZAD CASTILLO MRN: [id number] date: 1950 Sex: M Assigned Patient Location: [facility] Current Patient Location: Accession/Order Number: [id number] Exam Date: 05/16/2024 10:50 Report Date: 05/17/2024 04:54 At the request of: HERMINIO BENJAMIN Procedure: XR ribs RT min 3V w CXR1V EXAMINATION: XR ribs RT min 3V w CXR1V HISTORY: Right Side Rib Pain ; no known injury COMPARISON: XR chest 07/08/2009 FINDINGS: LUNGS: Trace amount of stranding within left midlung favoring chronic scarring. PLEURA: No pneumothorax, effusion, or pleural thickening. MEDIASTINUM: No visible mass or adenopathy. CARDIAC: No cardiomegaly or cardiac silhouette abnormality. RIBS: Normal. No significant arthropathy or acute abnormality. OTHER: Negative. XR/XR ribs RT min 3V w CXR1V IMPRESSION: 1. No acute cardiopulmonary process. 2. No appreciable rib abnormality. Electronically authenticated by: JESSICA GUERRERO Date: 05/17/2024 04:54
== END 2024-05-16 10:40 | disposition home or self-care (01) ==
LOC: RAD 10:40
PROVIDERS: PCP Family Medicine; Visit Provider Family Medicine
DX: R07.81 Pleurodynia (principal)
CPT/HCPCS: 71101

== ENCOUNTER 2024-08-28 10:08 | Outpatient (OUT) | payer MEDICARE, SELFPAY ==
[2024-08-28 11:35] LABS: Creatinine Urine Random 91.61 mg/dL (20.00-300.00); Microalbum Creatinine Ratio Ur 15.2 mg/g (0.0-29.9); Microalbumin Urine Random 1.4 mg/dL (<=30.0)
[2024-08-28 11:50] LABS: Anion Gap 10.9; BUN Creatinine Ratio 13.8; Calcium 9.8 mg/dL (8.5-10.1); Carbon Dioxide 29.8 mmol/L (21.0-32.0); Chloride 101 mmol/L (98-107); Estimated GFR (African America >60 (>=60 mL/min/1.73m^2); Estimated GFR (Non-African Ame >60 (>=60 mL/min/1.73m^2); Glucose 102 mg/dL (74-106); Potassium 3.7 mmol/L (3.5-5.1); Sodium 138 mmol/L (136-145)
[2024-08-28 12:22] LABS: Estimated Average Glucose 117 mg/dL; Glycohemoglobin A1C 5.7 % (4.5-6.2)
== END 2024-08-28 10:09 | disposition home or self-care (01) ==
LOC: LAB 10:10
PROVIDERS: PCP Family Medicine; Visit Provider Family Medicine
DX: E11.65 Type 2 diabetes mellitus with hyperglycemia (principal)
CPT/HCPCS: 36415; 80048; 82043; 82570; 83036

== ENCOUNTER 2025-04-24 09:59 | Outpatient (OUT) | payer MEDICARE, SELFPAY ==
--- OUTSIDE RECORDS SUMMARY | 2025-04-24 10:03 | XMS_ITS | Clinical Summary ---
Author Organization [facility] Healthcare Address [address] [place] [address] Care Team Providers Care Webmethods Architect Name Role Phone Unavailable Primary Care Provider Unavailabl e Social History Tobacco UseTypesPacks/DayYears UsedDateSmoking Tobacco: Never AssessedSex and Gender InformationValueDate RecordedSex Assigned at BirthNot on fileLegal Sex Male07/15/2022 8:21 PM EDTGender IdentityNot on fileSexual OrientationNot on file Last Filed Vital Signs Vital SignReadingTime TakenCommentsBlood Sjbndwxa023/9411 12:00 PM EST Pulse--Temperature--Respiratory Rate--Oxygen Saturation--Inhaled Oxygen Concentration--Shhxqr556 kg (245 lb)04/01/2022 12:00 PM EZBJjdulm110.3 cm (5' 11 )04/01/2022 12:00 PM ESTBody Mass Index34.17106/01/2021 12:00 PM EST Plan of Treatment Not on file Insurance
--- OUTSIDE RECORDS SUMMARY | 2025-04-24 10:03 | XMS_ITS | Clinical Summary ---
Author Organization [facility] Address [facility] [id number] [address] [place] [address] Care Team Providers Care It Data Architect Name Role Phone Unavailable Primary Care Provider Unavailabl e Immunizations ImmunizationAdministration DatesNext DueCOVID-19, mRNA, LNP-S, PF, 30mcg/0.3mL Dose07/16/2020,06/25/2020 Social History Tobacco UseTypesPacks/DayYears UsedDateSmoking Tobacco: Never AssessedChildcare AnswerDate YlznmhdvYucorsfymUhfelyw75/22/2021EmploymentAnswerDate Recorded TgjbjndecuJpouiho58/22/2021urpose - LifeAnswerDate RecordedPurpose and direction in oophVprzjfb54/22/2021ex and Gender InformationValueDate Recorded Sex Assigned at BirthNot on fileLegal RlaHdok5712/06/2014 11:31 AM EDTGender IdentityNot on fileSexual OrientationNot on file Plan of Treatment Health MaintenanceDue DateLast DoneCommentsDepression Gzsmfzdgt14/06/1964Tobacco Otikpibvm15/06/1964Adult BMI Mclssgpoy04/06/1970Zoster (Shingles) Vaccine (2 of 3), 07/17/2009Fall Risk Dlouxafej41/06/2017COVID-19 Vaccine (3 - season)5007/16/2020, 06/25/2020Influenza Ddlgodq3501/01/2025 02/13/2020, 02/08/2019, 03/15/2018, Additional history existsRSV ( or age 60+ yrs) (1 - 1-dose 75+ series)08/06/2026DTaP,Tdap and Td Vaccines (2 - Td or Tdap) Medical Devices Not on file Insurance
== END 2025-04-24 10:00 | disposition home or self-care (01) ==
PROVIDERS: PCP Family Medicine; Visit Provider Family Medicine
DX: Z00.00 Encounter for general adult medical examination without abnormal findings (principal); E11.65 Type 2 diabetes mellitus with hyperglycemia; Z12.5 Encounter for screening for malignant neoplasm of prostate
CPT/HCPCS: 36415; 83036; G0103